=== PATIENT | female | born 1970 | race Caucasian/White ===

== ENCOUNTER → 2025-02-17 | Outpatient (CLI) | payer MEDICAID, SELFPAY ==
--- NOTE | 2025-02-17 13:49 | XR_ITS ---
Examination: Venous duplex lower extremity sonogram, bilateral. Date and time of exam: February 17, 2025, 1354 hours INDICATIONS: Bilateral leg edema and pain beginning 4 months ago Technique: Multiple sonographic images of the deep venous system have been obtained. B-mode/2-D grayscale imaging of vascular structures and Doppler spectral analysis (waveforms) and color performed Both legs are examined. Findings: Deep venous systems do not demonstrate abnormal echogenicity. No diagnostic visualization right and left posterior tibial veins All visualized deep veins exhibit compressibility. All visualized deep veins exhibit augmentation. Impression: No DVT demonstrated
== END | disposition home or self-care (01) ==
PROVIDERS: PCP Student in an Organized Health Care Education/Training Program; Referring Provider Student in an Organized Health Care Education/Training Program; Visit Provider Student in an Organized Health Care Education/Training Program
DX: R25.2 Cramp and spasm (principal); R60.0 Localized edema
CPT/HCPCS: 93970